=== PATIENT | female | born 1965 | race Caucasian/White ===

== ENCOUNTER 2017-05-13 09:34 | Observation (INO) | payer BC ==
[2017-05-13 11:18] LABS: BASOPHIL# 0.1 X 10^3uL (0.0-0.1); BASOPHILS 0.7 % (0.0-2.0); EOSINOPHILS 1.5 % (0.0-6.0); EOSINOPHILS# 0.1 X 10^3uL (0.0-0.4); HEMATOCRIT 42.2 % (36.0-48.0); HEMOGLOBIN 14.3 g/dL (12.0-16.0); LYMPHOCYTES 32.6 % (20.0-40.0); LYMPHOCYTES# 2.8 X 10^3uL (0.8-3.8); MEAN CELL VOLUME 89.2 fL (80.0-100.0); MEAN CORPUS. HGB CONCENTRATION 33.8 g/dL (32.0-36.0); MEAN CORPUSCULAR HEMOGLOBIN 30.2 pg (29.0-35.0); MEAN PLATELET VOLUME 10.3 fL (7.4-10.4); MONOCYTES 9.9 % (2.0-10.0); MONOCYTES# 0.9 X 10^3uL (0.2-1.0); NEUTROPHILS 55.3 % (54.0-75.0); NEUTROPHILS# 4.7 X 10^3uL (2.6-6.7); PLATELET COUNT 235 X 10^3uL (130-440); RED BLOOD COUNT 4.73 X 10^6uL (4.20-6.10); RED CELL DISTRIBUTION WIDTH 13.1 % (11.5-14.5); WHITE BLOOD COUNT 8.6 X 10^3uL (3.9-10.7)
[2017-05-13] MEDS ORDERED: HOME MEDICATION LIST NEEDED 1 EA EACH MC ONE (11:19)
[2017-05-13] MEDS ORDERED: ACETAMINOPHEN 325 MG TABLET PO PRN (11:19)
[2017-05-13] MEDS ORDERED: MAG-AL PLUS XS SUSP 30 ML UDC PO PRN (11:19)
[2017-05-13] MEDS ORDERED: AMPICILLIN/SULBACTAM 3 GM/10 ML VIAL ONE (11:23)
[2017-05-13] MEDS ORDERED: NORMAL SALINE 100 ML IV ONE (11:24)
[2017-05-13 11:31] LABS: BLOOD UREA NITROGEN 20 mg/dL (7-17); C-REACTIVE PROTEIN 49.3 mg/L (<10.0); CHLORIDE 101 mmol/L (98-107); EST GLOMERULAR FILTRATION RATE > 60 mL/min; GLUCOSE 136 mg/dL (70-100); MAGNESIUM 2.3 mg/dL (1.6-2.3); POTASSIUM 3.7 mmol/L (3.5-5.1); SODIUM 139 mmol/L (137-145)
--- NOTE | 2017-05-13 11:31 | ER PHYSICIAN DOCUMENTATION ---
Physician Documentation [facility] Name:Zac Jha Age:51 yrs Sex:Female :1965 Arrival Date:05/13/2017 Time:09:34 Bed1 Private MD: Liban Powers Disposition: 05/13 11:09 Chart complete. cd Disposition: 05/13/17 11:02 Admit ordered for Sima Perez. Preliminary diagnosis is Cellulitis of Leg - : Acute, Left. - Bed requested for Medical/Surgical. - Condition is Fair. - Problem is an ongoing problem. - Symptoms are unchanged. 23 HR OBS Yes HPI: 10:00 This 51 yrs old Female presents to ER via Private Vehicle with complaints of cd Leg Swelling - LEFT. 10:00 The patient presents with pain, that is acute, swelling. The complaints affect the left cd machado, anterior aspect of left ankle and dorsum of left foot. Context: The problem was sustained at home, resulted from an unknown cause, the patient can fully bear weight, the patient is able to ambulate. Onset: The symptom(s)/episode began/occurred acutely, 4 day(s) ago. Associated signs and symptoms: Pertinent positives: calf tenderness, fever, rash, swelling, and shaking chills last night. Erythema and warmth to the left lower extremity. Worsening since Clindamycin increased 4 days ago. Rigors last night., Pertinent negatives nausea, vomiting, weakness. Treatment prior to arrival includes: prescription medications, Clindamycin 450 mg by mouth every 6 hours for the past four days. Previous to this she was on Clindamycin 150 mg by mouth every 8 hours for a left OM.. Severity of symptoms: At their worst the symptoms were moderate, in the emergency department the symptoms are actually worse, moderately. The patient has not experienced similar symptoms in the past. Historical: - Allergies: codeine sulfate; - Home Meds: 1. Paipkfvq-Vhhngpvjy-BW Otic 2. Victoza 2-Erik subcutaneous 3. clindamycin HCl 150 mg oral cap 1 cap every 6 hours 4. [place] Oral 5. Prednisolone Oral 6. Metformin Oral 7. valsartan oral 8. Probiotic oral 9. Levofloxacin Oral 10. Minocycline Oral 11. Nature-Throid oral 12. Gentamicin 0.3% soln Opht 13. fluticasone nasl - PMHx: HYPOTHYROIDISM; HYPERTENSION; OBESITY; lipidemia; rodasha; ANGINA; pre diabetic; - Tetanus: < 10 years. - Ebola Screening: : Patient denies exposure to infectious person. Patient denies travel to an Ebola-affected area in the 21 days before illness onset. . - Social history: Smoking status: Patient states was never smoker of tobacco. Patient/guardian denies using alcohol, marijuana. ROS: 10:49 Neck: Negative for injury, pain, stiffness and swelling. cd Cardiovascular: Negative for chest pain, palpitations, edema and pleuritic pain. Respiratory: Negative for shortness of breath, dyspnea on exertion, cough, sputum production, wheezing, hemoptysis and pleuritic chest pain. Abdomen/GI: Negative for abdominal pain, nausea, vomiting, diarrhea, constipation, distension, melena, hematochezia and hematemesis. Back: Negative for injury, pain or muscle spasms. : Negative for injury, bleeding, discharge, dysuria, frequency, urgency and swelling. 10:49 Neuro: Negative for headache, weakness, numbness, tingling, and seizure. cd 10:49 Constitutional: Positive for chills, fever, poor PO intake, Negative for body aches. 10:49 ENT: Negative for acute changes. 10:49 MS/extremity: Positive for erythema, swelling, tenderness, warmth, of the anterior aspect of left ankle and left machado and left toes and left foot and left ankle. 10:49 Skin: Positive for cellulitis, of the left machado, anterior aspect of left ankle and dorsum of left foot. 10:49 All other systems are negative. Exam: Head/Face: Normocephalic, atraumatic. ENT: Nares patent. No nasal discharge, no septal abnormalities noted. Tympanic membranes are normal and external auditory canals are clear. Oropharynx with no redness, swelling, or masses, exudates, or evidence of obstruction, uvula midline. Mucous membranes dry Neck: Trachea midline, no thyromegaly or masses palpated, and no cervical lymphadenopathy. Supple, full range of motion without nuchal rigidity, or vertebral point tenderness. No Meningismus. Chest/axilla: Normal chest wall appearance and motion. Nontender with no deformity. No lesions are appreciated. Cardiovascular: Regular rate and rhythm with a normal S1 and S2. No gallops, murmurs, or rubs. Normal PMI, no JVD. No pulse deficits. Respiratory: Lungs have equal breath sounds bilaterally, clear to auscultation and percussion. No rales, rhonchi or wheezes noted. No increased work of breathing, no retractions or nasal flaring. Abdomen/GI: Soft, non-tender, with normal bowel sounds. No distension or tympany. No guarding or rebound. No evidence of tenderness throughout. Back: No spinal tenderness. No costovertebral tenderness. Full range of motion. 10:51 Neuro: Awake and alert, GCS 15, oriented to person, place, time, and situation. cd Cranial nerves II-XII grossly intact. Motor strength 5/5 in all extremities. Sensory grossly intact. Cerebellar exam normal. Normal gait. 10:51 Constitutional: The patient appears alert, awake, non-diaphoretic, non-toxic, well developed, well nourished, obese. 10:51 Musculoskeletal/extremity: Extremities: grossly normal except: noted in the left machado and left toes and left foot and left ankle and left leg and lateral aspect of left calf: erythema, pain, swelling, ROM: no acute changes, Circulation is intact in all extremities. Sensation intact. Weight bearing: able to fully bear weight. 10:51 Skin: Appearance: Rosacea, cellulitis, that is moderate, on the left leg. Vital Signs: 10:01 BP 130 / 75; Pulse 80; Resp 20; Temp 98.3; Pulse Ox 96% on R/A; Pain 6/10; st [place] Coma Score: 10:51 Eye Response: spontaneous(4). Verbal Response: oriented(5). Motor Response: obeys cd commands(6). Total: 15. MDM: 09:45 Data interpreted: Pulse oximetry: on room air is 96 %. Interpretation: normal. cd 10:10 Differential diagnosis: DVT, Cellulitis of LLE. Data reviewed: vital signs, nurses cd notes, old medical records, and as a result, I will continue to observe the patient, obtain a Color Doppler Ultrasound of the LLE to Rule out DVT. If negative will do a Cellulitis workup.. 10:15 Patient medically screened. cd 11:01 Counseling: I had a detailed discussion with the patient and/or guardian regarding: the cd historical points, exam findings, and any diagnostic results supporting the discharge/admit diagnosis, radiology results, the need for further work-up and treatment in the hospital. 11:08 Physician consultation: Sima Perez MD was called at 10:55, was contacted at 11:05, regarding admission, to the floor, consult, patient's condition, need to evaluate the patient as soon as possible, and will see patient in inpatient room, shortly, later today. Admission orders: after a detailed discussion of the patient's condition and case, the admit orders are written by me. 11:09 Test interpretation: by ED physician or midlevel provider: Ultrasound of the LLE was cd completely normal. NO signs of DVT whatsoever.. 05/13 11:25 Order name: CBC AUTO DIF, MDIF/RMOR IF IND; Complete Time: 19:35 EDMS 05/13 19:34 Interpretation: Normal. 05/13 11:33 Order name: BASIC METABOLIC PANEL; Complete Time: 19:35 EDMS 05/13 19:34 Interpretation: Normal Except: GLUCOSE 136. 05/13 11:33 Order name: MAGNESIUM; Complete Time: 19:35 EDMS 05/13 19:34 Interpretation: Normal. 05/13 11:33 Order name: C-REACTIVE PROTEIN; Complete Time: 19:35 EDMS 05/13 19:34 Interpretation: Abnormal: C-REACTIVE PROTEIN 49.3. 05/13 13:36 Order name: URIC ACID; Complete Time: 19:35 EDMS 05/13 19:34 Interpretation: Abnormal: URIC ACID 7.0. 05/13 15:29 Order name: HEPATIC PANEL; Complete Time: 19:35 EDMO 05/13 19:35 Interpretation: Normal. 05/14 06:19 Order name: BASIC METABOLIC PANEL [facility] 05/14 06:30 Order name: CBC AUTO DIF, MDIF/RMOR IF IND EDMO 05/14 11:14 Order name: BLOOD CULTURE EDMO 05/14 11:14 Order name: BLOOD CULTURE EDMO 05/13 18:43 Order name: US EXT LOWER LEFT [id number]; Complete Time: 19:35 EDMS 05/13 19:35 Interpretation: Normal: Negative for DVT. cd Dispensed Medications: 10:54 Drug: NS 0.9% 500 ml; Route: IV; Rate: bolus; Site: right antecubital; st 11:22 Follow up: IV Status: Infusion continued upon admission st 11:14 Drug: Unasyn 3 grams; Route: IVPB; Site: right antecubital; st 11:22 Follow up: IV Status: Infusion continued upon admission st Signatures: Bianca Clay RN RN Liban Renee MD MD cd
--- NOTE | 2017-05-13 11:31 | ER NURSING DOCUMENTATION ---
Nurse's Notes [facility] Name:Zac Jha Age:51 yrs Sex:Female :1965 Arrival Date:05/13/2017 Time:09:34 Bed1 Private MD: Diagnosis:Cellulitis of Leg-: Acute, Left Presentation: 05/13 09:48 Acuity: [place] 3 st 09:55 Presenting complaint: Patient states: pt has left leg swelling and pain. pt was dx with st cellulitis 4 days ago but despite abx she states the discoloration and swelling are worst. Transition of care: patient was not received from another setting of care. 09:55 Method Of Arrival: Private Vehicle st Triage Assessment: 09:58 General: Appears in no apparent distress, Behavior is cooperative. Pain: Complains of st pain in lateral aspect of left calf, left lateral ankle and lateral aspect of left foot Pain currently is 6 out of 10 on a pain scale. Pain began 4 days. Cardiovascular: Edema is 4+ to left ankle, left foot and left toes pt states the right leg looks normal for her the left leg is very swollen for her. Respiratory: No deficits noted. GI: Reports nausea, and generally not feeling well. Derm: the left leg is swollen and the left foot and ankle are dark in coloring. the area is not hot to the touch. Historical: - Allergies: codeine sulfate; - Home Meds: 1. Mfamaebu-Fbgnrpmpv-CL Otic 2. Victoza 2-Erik subcutaneous 3. clindamycin HCl 150 mg oral cap 1 cap every 6 hours 4. [place] Oral 5. Prednisolone Oral 6. Metformin Oral 7. valsartan oral 8. Probiotic oral 9. Levofloxacin Oral 10. Minocycline Oral 11. Nature-Throid oral 12. Gentamicin 0.3% soln Opht 13. fluticasone nasl - PMHx: HYPOTHYROIDISM; HYPERTENSION; OBESITY; lipidemia; rodasha; ANGINA; pre diabetic; - Tetanus: < 10 years. - Ebola Screening: : Patient denies exposure to infectious person. Patient denies travel to an Ebola-affected area in the 21 days before illness onset. . - Social history: Smoking status: Patient states was never smoker of tobacco. Patient/guardian denies using alcohol, marijuana. Screenin:01 Infectious Disease Risk None. Abuse screen: Denies threats or abuse. Denies injuries st from another. pt feels safe at home. Nutritional screening: No deficits noted. Vital Signs: 10:01 BP 130 / 75; Pulse 80; Resp 20; Temp 98.3; Pulse Ox 96% on R/A; Pain 6/10; st [place] Coma Score: 10:51 Eye Response: spontaneous(4). Verbal Response: oriented(5). Motor Response: obeys cd commands(6). Total: 15. ED Course: 09:34 Patient arrived in ED. ds 09:37 Bianca Clay RN is Primary Nurse. st 09:[address] 10:02 Valuables Remains with patient Patient has correct armband on for positive st identification. Bed in low position. 10:04 Patient moved to [facility]. mk 10:15 Liban Martinez MD is Attending Physician. cd 10:24 Patient moved back from [facility]. mk 10:50 Inserted peripheral IV: 20 gauge in right antecubital area and blood collected. st 11:01 Sima Perez MD is Admitting Physician. cd 11:07 First set of blood cultures drawn Second set of blood cultures drawn by wv. st Administered Medications: 10:54 Drug: NS 0.9% 500 ml; Route: IV; Rate: bolus; Site: right antecubital; st 11:22 Follow up: IV Status: Infusion continued upon admission st 11:14 Drug: Unasyn 3 grams; Route: IVPB; Site: right antecubital; st 11:22 Follow up: IV Status: Infusion continued upon admission st Outcome: 11:02 Decision to Admit by Provider. cd 11:21 Admitted to Med/surg st 11:21 Condition: stable 11:21 Report given to Tanner RN 11:21 Instructed on need to admit 11:30 Patient [address] the ED. st Signatures: Bianca Clay RN RN st Srot, Dayan, Reg Reg Liban Coughlin MD MD cd Kimbro, Marcy mk
[2017-05-13] MEDS ORDERED: NORMAL SALINE 1,000 ML IV SCH (12:00)
[2017-05-13] MEDS ORDERED: PROBIOTIC 1 CAP CAPSULE PO PRN (13:16)
[2017-05-13] MEDS ORDERED: LIRAGLUTIDE 1.2 MG SQ SCH (15:00)
[2017-05-13 15:16] LABS: ALBUMIN 3.4 g/dL (3.5-5.0); BILIRUBIN, TOTAL 0.5 mg/dL (0.2-1.3); TOTAL PROTEIN 6.7 g/dL (6.3-8.2)
[2017-05-13] MEDS ORDERED: ONDANSETRON ODT 4 MG TAB.RAPDIS PO PRN (16:04)
[2017-05-13] MEDS: NEOMYCIN EACH EAR SCH ×2 (16:15→23:34)
[2017-05-13] MEDS: HYDROCORTISONE EACH EAR SCH ×2 (16:15→23:34)
[2017-05-13] MEDS: [UNRECOGNIZED DRUG - OTHER] EACH EAR SCH ×2 (16:15→23:34)
[2017-05-13] MEDS: INSULIN LISPRO 100 UNIT/ML ML SUBCUT SCH ×2 (16:53→23:28)
[2017-05-13] MEDS ORDERED: HYDROCORTISONE EACH EAR SCH (17:00)
[2017-05-13] MEDS ORDERED: [UNRECOGNIZED DRUG - OTHER] EACH EAR SCH (17:00)
[2017-05-13] MEDS ORDERED: NEOMYCIN EACH EAR SCH (17:00)
--- NOTE | 2017-05-13 17:43 | US REPORT ---
Routine venous duplex examination of the major deep veins of the left leg demonstrates no primary or secondary evidence of deep venous thrombosis. IMPRESSION: Examination is negative for major deep venous thrombosis in the left leg. MTDD
[2017-05-13] MEDS: NYSTATIN SUSP 500,000 UNITS/5 ML SUSP PO SCH ×2 (17:50→23:34)
[2017-05-13] MEDS: AMPICILLIN/SULBACTAM 3 GM/10 ML VIAL IV SCH (17:51)
[2017-05-13] MEDS ORDERED: NORMAL SALINE MINI-BAG+ 100 ML IV ONE ×3 (18:01→23:46)
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
[2017-05-13] MEDS: LIRAGLUTIDE 1.2 MG SQ SCH (18:23)
[2017-05-13] MEDS ORDERED: PREDNISONE 20 MG PO SCH (21:00)
[2017-05-13] MEDS: predniSONE 10 MG TABLET PO SCH (23:34)
[2017-05-14] MEDS ORDERED: [UNRECOGNIZED DRUG - OTHER] EACH EAR SCH
[2017-05-14] MEDS ORDERED: HYDROCORTISONE EACH EAR SCH
[2017-05-14] MEDS ORDERED: NEOMYCIN EACH EAR SCH
[2017-05-14] MEDS: AMPICILLIN/SULBACTAM 3 GM/10 ML VIAL IV SCH ×4 (00:41→17:11)
[2017-05-14] MEDS ORDERED: NORMAL SALINE MINI-BAG+ 100 ML IV ONE ×3 (05:22→17:20)
[2017-05-14 06:15] LABS: BASOPHILS 0.5 % (0.0-2.0); EOSINOPHILS 0.8 % (0.0-6.0); EOSINOPHILS# 0.1 X 10^3uL (0.0-0.4); HEMATOCRIT 45.1 % (36.0-48.0); HEMOGLOBIN 14.5 g/dL (12.0-16.0); LYMPHOCYTES 18.6 % (20.0-40.0); LYMPHOCYTES# 1.4 X 10^3uL (0.8-3.8); MEAN CELL VOLUME 89.2 fL (80.0-100.0); MEAN CORPUS. HGB CONCENTRATION 32.2 g/dL (32.0-36.0); MEAN CORPUSCULAR HEMOGLOBIN 28.7 pg (29.0-35.0); MEAN PLATELET VOLUME 9.6 fL (7.4-10.4); MONOCYTES 4.2 % (2.0-10.0); MONOCYTES# 0.3 X 10^3uL (0.2-1.0); NEUTROPHILS 75.9 % (54.0-75.0); NEUTROPHILS# 5.6 X 10^3uL (2.6-6.7); PLATELET COUNT 286 X 10^3uL (130-440); RED BLOOD COUNT 5.05 X 10^6uL (4.20-6.10); RED CELL DISTRIBUTION WIDTH 13.1 % (11.5-14.5); WHITE BLOOD COUNT 7.4 X 10^3uL (3.9-10.7)
[2017-05-14 06:18] LABS: BLOOD UREA NITROGEN 14 mg/dL (7-17); CHLORIDE 103 mmol/L (98-107); EST GLOMERULAR FILTRATION RATE > 60 mL/min; GLUCOSE 144 mg/dL (70-100); POTASSIUM 4.2 mmol/L (3.5-5.1); SODIUM 141 mmol/L (137-145)
[2017-05-14 06:22] VITALS: O2SAT 92
[2017-05-14] MEDS: INSULIN LISPRO 100 UNIT/ML ML SUBCUT SCH ×3 (08:14→16:04)
--- NOTE | 2017-05-14 08:39 | PROGRESS NOTE: IM APSO ---
Assessment and Plan - Date of Encounter Date of Encounter: 05/14/17 (1) Cellulitis Status: Acute Assessment and plan: Significant improvement in symptoms today after having 4 doses of IV Unasyn. Initial symptoms started after probable small cut and then exposure to dirty water. Initial symptoms started a week ago and did have evaluation in [place], [place] started on oral clindamycin. Thought symptoms were improving but had flare in rigors/swelling/reddness with resultant evaluation in ED yesterday. Will reassess symptoms this afternoon after additional clindamycin dose. With good response to Unasyn, can consider transition to oral augmentin with close monitoring. Patient however is planning [facility] to drive back to [place] ([address]) tomorrow morning. Blood culture negative thus far, no elevated WBC ( even with being on steroids for ear issue). After recheck this afternoon and ongoing improvment, agreeable to discharge after 6pm dose of unasyn. Patient will be [facility] tomorrow morning and has follow up visit with PCP on . Current Visit: Yes (2) Diabetes mellitus Status: Chronic Assessment and plan: Has been prediabetic for years and recently transitioned to diabetes (A1c 7.7). Is on metformin and victoza. Sliding scale insulin during hospitalization and return to regular meds on discharge Current Visit: Yes (3) Hypertension Status: Chronic Assessment and plan: BP slightly elevated with hospitalization. 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 Current Visit: Yes (4) Morbid obesity Status: Chronic Assessment and plan: Likely contributor to current infection and underlying health issues Current Visit: Yes (5) Chronic infection of left ear Status: Chronic Assessment and plan: Has been working with ENT regarding infection. Still feels not entirely resolved, will be finishing meds up this week and has follow up planned in [place]. Current Visit: Yes (6) CAD (coronary artery disease) Status: Chronic Assessment and plan: Medically managed, no acute issues at this time. Current Visit: Yes (7) Hypothyroid Status: Chronic Assessment and plan: Continue home medications. Current Visit: Yes - Time Spent With Patient Total time spent with greater than 50% in coordination of care (as documented) at patient's floor/unit and/or counseling patient: Greater than 35 minutes Estimated anticipated discharge: later today or tomorrow jm IM: PN Subjective Interval history: doing much better, no pain or increased sensitivity. Redness and swelling is improved per patient and nursing report. Family plan was to leave tomorrow morning to start drive back to [place]. She has been in contact with her PCP locally. General: good appetite (ate entire breakfast), no fever, no chills HEENT: other (ongoing chronic ear issue), no headache Cardiovascular: no chest pain, no chest pressure, no dizziness Respiratory: no cough, no SOB Gastrointestinal: no abdominal pain, no vomiting, no diarrhea Musculoskeletal: swelling, no pain (denies any significant pain), no weakness Integumentary: other (redness but improving) Neurological: no headache IM: PN Objective Exam - I&O/Vital Signs I&O: Intake & Output 05/13/17 05/14/17 05/14/17 21:59 05:59 13:59 Intake Total 520 150 Output Total 350 Balance 170 150 Weight 173.272 kg 173.272 kg Intake: Oral 520 150 Output: Urine 350 Other: Urine Appearance Clear Urine Color Yellow Voiding Method Toilet # Voids 4 Vital Signs: Last Vital Signs Temp 36.7 C 05/14/17 06:20 Pulse 77 05/14/17 06:20 Resp 20 05/14/17 06:20 BP 161/88 05/14/17 06:20 Pulse Ox 92 05/14/17 06:20 Oxygen Delivery Method Room Air - Constitutional General appearance: Present: cooperative, morbidly obese. Absent: acute distress - Head Head exam: Absent: atraumatic - Eye Eye exam: Present: EOMI. Absent: conjunctival injection - ENT ENT exam: Present: mucous membranes moist, normal oropharynx - Neck Neck exam: Present: normal inspection, other (obese) - Respiratory Respiratory exam: Present: clear. Absent: accessory muscle use - Cardiovascular Cardiovascular exam: Present: RRR - GI/Abdominal GI/Abdominal exam: Present: soft. Absent: tenderness - Extremities Exam Extremities exam: Present: edema (left leg worse than right), other (area marked of previous redness and sweling, today much improvement and minimal erythema noted). Absent: tenderness - Neurological Exam Neurological exam: Present: alert, oriented X3 - Psychiatric Psychiatric exam: Present: normal affect, normal mood - Allied Health Notes Allied health notes reviewed: nursing - Lab Labs: Laboratory Last Values WBC 7.4 X 10^3uL (3.9-10.7) 05/14/17 05:30 RBC 5.05 X 10^6uL (4.20-6.10) 05/14/17 05:30 Hgb 14.5 g/dL (12.0-16.0) 05/14/17 05:30 Hct 45.1 % (36.0-48.0) 05/14/17 05:30 MCV 89.2 fL (80.0-100.0) 05/14/17 05:30 MCH 28.7 pg (29.0-35.0) L 05/14/17 05:30 MCHC 32.2 g/dL (32.0-36.0) 05/14/17 05:30 RDW 13.1 % (11.5-14.5) 05/14/17 05:30 Plt Count 286 X 10^3uL (130-440) 05/14/17 05:30 MPV 9.6 fL (7.4-10.4) 05/14/17 05:30 Neutrophils % 75.9 % (54.0-75.0) H 05/14/17 05:30 Lymphocytes % 18.6 % (20.0-40.0) L 05/14/17 05:30 Eosinophils % 0.8 % (0.0-6.0) 05/14/17 05:30 Basophils % 0.5 % (0.0-2.0) 05/14/17 05:30 Neutrophils # 5.6 X 10^3uL (2.6-6.7) 05/14/17 05:30 Lymphocytes # 1.4 X 10^3uL (0.8-3.8) 05/14/17 05:30 Monocytes 4.2 % (2.0-10.0) 05/14/17 05:30 Monocytes # 0.3 X 10^3uL (0.2-1.0) 05/14/17 05:30 Eosinophils # 0.1 X 10^3uL (0.0-0.4) 05/14/17 05:30 Basophils # 0.0 X 10^3uL (0.0-0.1) 05/14/17 05:30 Sodium 141 mmol/L (137-145) 05/14/17 05:30 Potassium 4.2 mmol/L (3.5-5.1) 05/14/17 05:30 Chloride 103 mmol/L (98-107) 05/14/17 05:30 Carbon Dioxide 27 mmol/L (22-30) 05/14/17 05:30 BUN 14 mg/dL (7-17) 05/14/17 05:30 Creatinine 0.9 mg/dL (0.5-1.0) 05/14/17 05:30 GFR Calculation > 60 mL/min 05/14/17 05:30 Glucose 144 mg/dL (70-100) H 05/14/17 05:30 Uric Acid 7.0 mg/dL (2.5-6.2) H 05/13/17 10:45 Calcium 9.0 mg/dL (8.4-10.2) 05/14/17 05:30 Magnesium 2.3 mg/dL (1.6-2.3) 05/13/17 10:45 Total Bilirubin 0.5 mg/dL (0.2-1.3) 05/13/17 14:40 Direct Bilirubin 0.0 mg/dL (0.0-0.4) 05/13/17 14:40 AST 18 U/L (14-36) 05/13/17 14:40 ALT 39 U/L (9-52) 05/13/17 14:40 Alkaline Phosphatase 59 U/L (38-126) 05/13/17 14:40 C-Reactive Protein 49.3 mg/L (<10.0) H 05/13/17 10:45 Total Protein 6.7 g/dL (6.3-8.2) 05/13/17 14:40 Albumin 3.4 g/dL (3.5-5.0) L 05/13/17 14:40 Quality Questions - VTE Prophylaxis Assessment VTE Present on Admission?: No Patient at risk for venous thromboembolism?: Yes VTE Risk Level: Moderate Risk Pharmaceutical VTE prophylaxis contraindication reason: N/A- VTE prophylaxsis ordered Mechanical VTE prophylaxis contraindication reason: N/A- VTE prophylaxsis ordered (1) Cellulitis Qualifiers: Site of cellulitis: extremity Site of cellulitis of extremity: lower extremity Laterality: left Qualified Code(s): L03.116 - Cellulitis of left lower limb (2) Diabetes mellitus Qualifiers: Diabetes mellitus type: type 2 (3) Hypertension Qualifiers: Hypertension type: essential hypertension Qualified Code(s): I10 - Essential (primary) hypertension (7) Hypothyroid Qualifiers: 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
[2017-05-14] MEDS ORDERED: HYDROCHLOROTHIAZIDE PO SCH (09:00)
[2017-05-14] MEDS ORDERED: CHOLECALCIFEROL 6000 UNIT PO SCH (09:00)
[2017-05-14] MEDS ORDERED: MINOCYCLINE HCL 100 MG PO SCH ×2 (09:00)
[2017-05-14] MEDS ORDERED: VALSARTAN 80 MG TABLET PO SCH (09:00)
[2017-05-14] MEDS ORDERED: FLUTICASONE NASAL 120 SPRAY BTL NASAL SCH ×2 (09:00)
[2017-05-14] MEDS ORDERED: THYROID PORK 130 MG PO SCH ×2 (09:00)
[2017-05-14] MEDS ORDERED: VALSARTAN PO SCH (09:00)
[2017-05-14] MEDS ORDERED: LIRAGLUTIDE SQ SCH (09:00)
[2017-05-14] MEDS ORDERED: ENOXAPARIN SODIUM 40 MG/0.4 ML SYR SUBCUT SCH (09:00)
[2017-05-14] MEDS ORDERED: CHOLECALCIFEROL 1,000 UNIT CAPSULE PO SCH (09:00)
[2017-05-14] MEDS ORDERED: HYDROCHLOROTHIAZIDE 25 MG TABLET PO SCH (09:00)
[2017-05-14] MEDS ORDERED: [UNRECOGNIZED DRUG - OTHER] PO SCH (09:00)
[2017-05-14] MEDS ORDERED: metFORMIN ER 500 MG TABLET PO SCH (09:00)
[2017-05-14] MEDS: HYDROCORTISONE EACH EAR SCH ×2 (09:59→14:59)
[2017-05-14] MEDS: NEOMYCIN EACH EAR SCH ×2 (09:59→14:59)
[2017-05-14] MEDS: [UNRECOGNIZED DRUG - OTHER] EACH EAR SCH ×2 (09:59→14:59)
[2017-05-14] MEDS: NYSTATIN SUSP 500,000 UNITS/5 ML SUSP PO SCH ×3 (10:05→16:04)
[2017-05-14] MEDS: LIRAGLUTIDE 1.2 MG SQ SCH (10:06)
[2017-05-14] MEDS: predniSONE 10 MG TABLET PO SCH (10:10)
--- NOTE | 2017-05-14 13:30 | DC SUMMARY: IM Note ---
Discharge Summary: IM/Peds Provider: Date of Admission: 05/13/17 Admitting Provider: KIRA FORD Attending Provider: KIRA FORD Discharging Provider: KIRA FORD Primary Care Provider: Discharge Date: 05/14/17 - Diagnosis (1) Cellulitis Status: Acute Qualifiers: Site of cellulitis: extremity Site of cellulitis of extremity: lower extremity Laterality: left Qualified Code(s): L03.116 - Cellulitis of left lower limb (2) Diabetes mellitus Status: Chronic Qualifiers: Diabetes mellitus type: type 2 (3) Hypertension Status: Chronic Qualifiers: Hypertension type: essential hypertension Qualified Code(s): I10 - Essential (primary) hypertension (4) Morbid obesity Status: Chronic (5) Chronic infection of left ear Status: Chronic (6) CAD (coronary artery disease) Status: Chronic (7) Hypothyroid Status: Chronic Qualifiers: 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 Jah is a very pleasant 51 yo F with DM, HTN, hypothyroidism visiting from [place] who ended up with progressive cellulitis of left lower extremity not responding to initial oral agents. She was originally on levaquin and steroids for ear infection, transitioned to clindamycin for progression in cellulitis. Eventually she ended up in our emergency room/hospital and started on Unasyn. Thankfully after transition to IV antibiotics her symptoms are significantly improved. We discussed continuing IV antibiotics for an additional night and discharge in morning vs discharge tonight as they are leaving town tomorrow and she does need to help with some of those tasks. Since her symptoms have responded well- she will be discharged after her 6pm dose of unasyn tonight and start oral augmentin tomorrow. Patient understands to keep leg elevated with travel. She has follow up with PCP already scheduled for Friday 05/18. Will need continued monitoring of her blood pressure (was slightly elevated with hospitalization) as well as blood sugars. Blood culture negative thus far but final not until 04/14 or 04/15- will contact if positive result. - Time Spent with Patient Total time spent providing and/or coordinating discharge services: Time with patient DS: Greater than 30 minutes Discharge - Patient/Caregiver Discharge Instructions Activity Level: As tolerated- be sure to elevate leg during car ride if able and encourage frequent stops for ambulation Diet: Diabetic Follow up: PRIMARY PROVIDER,MAE [] - 05/18/17 (Patient already set up appt) Overall discharge status: patient is progressing back to baseline Print Language: TURKMEN Home Medications: Amoxicillin/Potassium Clav [Augmentin 875-125 Tablet] 1 tab PO BID #20 tab Disposition: HOME, SELF-CARE Discharge Summary Data - Medication History Medication History: Home Medications Cholecalciferol (Vitamin D3) [Vitamin D3] 6,000 unit PO DAILY 05/13/17 Clindamycin HCl [Cleocin HCl*] 150 mg PO QID 05/13/17 Fluticasone Nasal [Flonase Nasal [place]*] 1 sprays NASAL DAILY 05/13/17 Gentamicin 0.3% Ophth [Gentamycin 0.3% Ophth Soln*] 4 drop LEFT EAR BID Hydrocodone/Acetaminophen [Ol[place] 5-325 Tablet] 1 tab PO Q6H PRN 05/13/17 Levofloxacin [Levaquin*] 500 mg PO DAILY 05/13/17 Liraglutide [Victoza 2-Erik] 0.12 mg SQ DAILY 05/13/17 Minocycline HCl [Minocin] 100 mg PO DAILY 05/13/17 Neomycin/Polymyxin B Sulf/Hc [Zcknvjzq-Dqtywrzeb-Gw Ear Soln] 4 drop EACH EAR TID 05/13/17 Probiotic [Mira-Q Capsule] 1 each PO PRN PRN 05/13/17 Thyroid,Pork [Nature-Throid] 130 mg PO DAILY 05/13/17 Valsartan/Hydrochlorothiazide [Valsartan-Hctz 320-25 mg Tab] 1 each PO DAILY metFORMIN ER [Glucophage Xr] 750 mg PO DAILY 05/13/17 prednisone [Prednisone] 20 mg PO BID 05/13/17 Inpatient Medications 05/13/17 13:16 Probiotic [Mira-Q Capsule] 1 cap PO PRN PRN 05/13/17 14:29 hydroCODone/APAP 5/325 MG [Olpe] 1 tab PO Q6H PRN 05/13/17 15:00 Neomycin/Polymyxin/Hc Otic [Cortisporin Otic Susp] 4 drop EACH EAR TID 05/13/17 16:04 Ondansetron Odt [Zofran Odt] 4 mg PO Q6H PRN 05/13/17 17:00 Insulin Lispro [HumaLOG] See Protocol SUBCUT ACHS Nystatin Susp [Mycostatin Susp] 50,000 units PO QID 05/13/17 19:00 Liraglutide [Victoza 2-Erik] 1.2 mg SQ DAILY 05/13/17 21:00 predniSONE [Deltasone] 20 mg PO BID 05/14/17 09:00 Cholecalciferol [Vitamin D3] 6,000 unit PO DAILY Enoxaparin Sodium [Lovenox] 40 mg SUBCUT DAILY Fluticasone Nasal [Flonase Nasal [place]] 1 spray NASAL DAILY Hydrochlorothiazide [Hydrodiuril] 25 mg PO DAILY Minocycline Hcl [Minocin] 100 mg PO DAILY Thyroid,Pork [Nature-Throid] 130 mg PO DAILY Valsartan [Diovan] 320 mg PO DAILY metFORMIN ER [Glucophage Xr] 750 mg PO DAILY Procedures and tests throughout hospitalization: Completed Lab Orders 05/13/17 10:45 URIC ACID [CHEM] Urgent 05/13/17 14:40 HEPATIC PANEL [CHEM] Routine Pending Orders 05/13/17 13:16 Probiotic [Mira-Q Capsule] 1 cap PO PRN PRN 05/13/17 13:33 Finger Stick Blood Sugar ACHS FINGER STICK Hypoglycemia treatment... PER PROTOCOL 05/13/17 14:29 hydroCODone/APAP 5/325 MG [Olpe] 1 tab PO Q6H PRN 05/13/17 15:00 Neomycin/Polymyxin/Hc Otic [Cortisporin Otic Susp] 4 drop EACH EAR TID 05/13/17 16:04 Ondansetron Odt [Zofran Odt] 4 mg PO Q6H PRN 05/13/17 17:00 Insulin Lispro [HumaLOG] See Protocol SUBCUT ACHS Nystatin Susp [Mycostatin Susp] 50,000 units PO QID 05/13/17 19:00 Liraglutide [Victoza 2-Erik] 1.2 mg SQ DAILY 05/13/17 21:00 predniSONE [Deltasone] 20 mg PO BID 05/14/17 09:00 Cholecalciferol [Vitamin D3] 6,000 unit PO DAILY Enoxaparin Sodium [Lovenox] 40 mg SUBCUT DAILY Fluticasone Nasal [Flonase Nasal [place]] 1 spray NASAL DAILY Hydrochlorothiazide [Hydrodiuril] 25 mg PO DAILY Minocycline Hcl [Minocin] 100 mg PO DAILY Thyroid,Pork [Nature-Throid] 130 mg PO DAILY Valsartan [Diovan] 320 mg PO DAILY metFORMIN ER [Glucophage Xr] 750 mg PO DAILY Labs on day of discharge: Labs from last 24 hours 05/14/17 05/13/17 05:30 14:40 WBC 7.4 RBC 5.05 Hgb 14.5 Hct 45.1 MCV 89.2 MCH 28.7 L MCHC 32.2 RDW 13.1 Plt Count 286 MPV 9.6 Neutrophils % 75.9 H Lymphocytes % 18.6 L Eosinophils % 0.8 Basophils % 0.5 Neutrophils # 5.6 Lymphocytes # 1.4 Monocytes 4.2 Monocytes # 0.3 Eosinophils # 0.1 Basophils # 0.0 Sodium 141 Potassium 4.2 Chloride 103 Carbon Dioxide 27 BUN 14 Creatinine 0.9 GFR Calculation > 60 Glucose 144 H Calcium 9.0 Total Bilirubin 0.5 Direct Bilirubin 0.0 AST 18 ALT 39 Alkaline Phosphatase 59 Total Protein 6.7 Albumin 3.4 L - Imaging and Cardiology LE Ultrasound Additional comments: Negative for DVT IM: Discharge Physical Exam - I&O/Vital Signs I&O: Intake & Output 05/13/17 05/14/17 05/14/17 21:59 05:59 13:59 Intake Total 520 150 Output Total 350 Balance 170 150 Weight 173.272 kg 173.272 kg Intake: Oral 520 150 Output: Urine 350 Other: Urine Appearance Clear Urine Color Yellow Voiding Method Toilet # Voids 4 Vital Signs: Last Vital Signs Temp 36.9 C 05/14/17 11:00 Pulse 72 05/14/17 11:00 Resp 16 05/14/17 11:00 BP 159/82 05/14/17 11:00 Pulse Ox 92 05/14/17 11:19 Oxygen Delivery Method Room Air - Constitutional General appearance: Present: cooperative, morbidly obese. Absent: acute distress - Head Head exam: Absent: atraumatic - Eye Eye exam: Present: EOMI. Absent: conjunctival injection - ENT ENT exam: Present: mucous membranes moist, normal oropharynx - Neck Neck exam: Present: normal inspection, other (obese) - Respiratory Respiratory exam: Present: clear. Absent: accessory muscle use - Cardiovascular Cardiovascular exam: Present: RRR - GI/Abdominal GI/Abdominal exam: Present: soft. Absent: tenderness - Extremities Exam Extremities exam: Present: edema (left leg worse than right), other (area marked of previous redness and sweling, today much improvement and minimal erythema noted). Absent: tenderness - Neurological Exam Neurological exam: Present: alert, oriented X3 - Psychiatric Psychiatric exam: Present: normal affect, normal mood - Allied Health Notes Allied health notes reviewed: nursing
[2017-05-14 16:00] VITALS: BP 152/72; PULSE 73; RESP 20; TEMP 98.2
== END 2017-05-14 18:40 | disposition home or self-care (01) ==
LOC: ER 09:34 → IN 11:22
PROVIDERS: ADMIT Family Medicine; ATTEND Family Medicine
DX: L03.116 Cellulitis of left lower limb (principal); H66.92 Otitis media, unspecified, left ear; E11.9 Type 2 diabetes mellitus without complications; I10 Essential (primary) hypertension; E66.9 Obesity, unspecified; E06.3 Autoimmune thyroiditis; I25.10 Atherosclerotic heart disease of native coronary artery without angina pectoris; E55.9 Vitamin D deficiency, unspecified; L71.9 Rosacea, unspecified; Z79.899 Other long term (current) drug therapy
CPT/HCPCS: 36415; 80048; 80076; 83735; 84550; 85025; 86140; 87040; 96366; 96372; 96374; 99285; G0378; J0295; J1650; J7030; J7512